=== PATIENT | female | born 1960 | race Asian ===

== ENCOUNTER 2017-05-13 08:51 | Inpatient (IN) | payer BC, OTHER ==
[2017-05-13] MEDS ORDERED: ONDANSETRON 4 MG/2 ML VIAL IVP STA (09:01)
[2017-05-13] MEDS ORDERED: SODIUM CHLORIDE 0.9% 500 ML IV STA (09:01)
[2017-05-13] MEDS ORDERED: SODIUM CHLORIDE 0.9% 1,000 ML IV STA (09:01)
[2017-05-13] MEDS ORDERED: ACETAMINOPHEN TAB 500 MG TAB PO STA (09:03)
--- NOTE | 2017-05-13 09:09 | ED ---
Fever HPI - General Source: patient, family, RN notes reviewed Mode of arrival: ambulatory Limitations: language barrier <Jay Fortune - Last Filed: 05/13/17 10:50> <Daniel Monique - Last Filed: 05/13/17 11:02> - General Chief Complaint: Fever Stated Complaint: Dizziness Time Seen by Provider: 05/13/17 08:56 - History of Present Illness Initial Comments: This a 56-year-old female presents emergency Department chief complaint of right -sided abdominal pain, right flank pain for last 2-3 days. Patient states that she's had some vomiting denies any diarrhea constipation issues. Patient denies any dysuria, hematuria, sick contacts. Patient had no prior abdominal surgeries. Patient denies any chest pain or shortness of breath. Patient denies any injury. Patient has not taken anything recently for her fever. ( Jay Fortune) - Related Data Allergies Allergy/AdvReac Type Severity Reaction Status Date / Time No Known Allergies Allergy Verified 05/13/17 10:59 Review of Systems ROS Other: All systems not noted in ROS Statement are negative. <Jay Fortune - Last Filed: 05/13/17 10:50> ROS Other: All systems not noted in ROS Statement are negative. <Daniel Monique - Last Filed: 05/13/17 11:02> ROS Statement: Those systems with pertinent positive or pertinent negative responses have been documented in the HPI. Past Medical History Past Medical History: No Reported History History of Any Multi-Drug Resistant Organisms: None Reported Past Surgical History: No Surgical Hx Reported Past Psychological History: No Psychological Hx Reported Smoking Status: Never smoker Past Alcohol Use History: None Reported Past Drug Use History: None Reported <Jay Fortune - Last Filed: 05/13/17 10:50> General Exam Limitations: language barrier General appearance: alert, in no apparent distress Head exam: Present: atraumatic, normocephalic, normal inspection Respiratory exam: Present: normal lung sounds bilaterally. Absent: respiratory distress, wheezes, rales, rhonchi, stridor Cardiovascular Exam: Present: normal rhythm, tachycardia, normal heart sounds. Absent: systolic murmur, diastolic murmur, rubs, gallop, clicks GI/Abdominal exam: Present: soft, tenderness (Right upper quadrant), normal bowel sounds. Absent: distended, guarding, rebound, rigid Back exam: Present: CVA tenderness (R). Absent: CVA tenderness (L) Skin exam: Present: warm, dry, intact, normal color. Absent: rash <Jay Fortune - Last Filed: 05/13/17 10:50> Course <Jay Fortune - Last Filed: 05/13/17 10:50> <Daniel Monique - Last Filed: 05/13/17 11:02> Vital Signs 05/13/17 08:53 Temperature 102.0 F H Pulse Rate 103 H Respiratory 20 Rate Blood Pressure 105/57 O2 Sat by Pulse 98 Oximetry - Reevaluation(s) Reevaluation #1: 05/13/17 11:02 PA supervision: I did personally evaluate this case and did discuss findings. The hospitalist was notified the patient does have evidence of pyelonephritis as well as gallbladder disease. Patient will require IV antibiotics with surgical consultation. I do agree with the assessment and plan. (Daniel Monique) Medical Decision Making - Lab Data Result diagrams: 05/13/17 09:05 05/13/17 09:05 <Jay Fortune - Last Filed: 05/13/17 10:50> - Lab Data Result diagrams: 05/13/17 09:05 05/13/17 09:05 <Daniel Monique - Last Filed: 05/13/17 11:02> - Lab Data Lab Results 05/13/17 05/13/17 05/13/17 Range/Units 09:05 09:05 09:05 WBC 9.9 (3.8-10.6) k/uL RBC 4.02 (3.80-5.40) m/uL Hgb 12.2 (11.4-16.0) gm/dL Hct 37.4 (34.0-46.0) % MCV 92.9 (80.0-100.0) fL MCH 30.3 (25.0-35.0) pg MCHC 32.6 (31.0-37.0) g/dL RDW 12.9 (11.5-15.5) % Plt Count 170 (150-450) k/uL Neutrophils % 88 % Lymphocytes % 9 % Monocytes % 2 % Eosinophils % 1 % Basophils % 0 % Neutrophils # 8.7 H (1.3-7.7) k/uL Lymphocytes # 0.9 L (1.0-4.8) k/uL Monocytes # 0.2 (0-1.0) k/uL Eosinophils # 0.1 (0-0.7) k/uL Basophils # 0.0 (0-0.2) k/uL Sodium 139 (137-145) mmol/L Potassium 3.8 (3.5-5.1) mmol/L Chloride 106 (98-107) mmol/L Carbon Dioxide 21 L (22-30) mmol/L Anion Gap 12 mmol/L BUN 8 (7-17) mg/dL Creatinine 0.66 (0.52-1.04) mg/dL Est GFR (CKD-EPI)AfAm >90 (>60 ml/min/1.73 sqM) Est GFR (CKD-EPI)NonAf >90 (>60 ml/min/1.73 sqM) Glucose 121 H (74-99) mg/dL Plasma Lactic Acid Carmine 1.1 (0.7-2.0) mmol/L Calcium 8.8 (8.4-10.2) mg/dL Total Bilirubin 0.9 (0.2-1.3) mg/dL AST 21 (14-36) U/L ALT 36 (9-52) U/L Alkaline Phosphatase 57 (38-126) U/L Total Protein 6.8 (6.3-8.2) g/dL Albumin 3.8 (3.5-5.0) g/dL Amylase 46 (30-110) U/L Lipase 43 (23-300) U/L Urine Color Urine Appearance (Clear) Urine pH (5.0-8.0) Ur Specific Snyder (1.001-1.035) Urine Protein (Negative) Urine Glucose (UA) (Negative) Urine Ketones (Negative) Urine Blood (Negative) Urine Nitrite (Negative) Urine Bilirubin (Negative) Urine Urobilinogen (<2.0) mg/dL Ur Leukocyte Esterase (Negative) Urine RBC (0-5) /hpf Urine WBC (0-5) /hpf Urine WBC Clumps (None) /hpf Amorphous Sediment (None) /hpf Urine Bacteria (None) /hpf 05/13/17 Range/Units 09:05 WBC (3.8-10.6) k/uL RBC (3.80-5.40) m/uL Hgb (11.4-16.0) gm/dL Hct (34.0-46.0) % MCV (80.0-100.0) fL MCH (25.0-35.0) pg MCHC (31.0-37.0) g/dL RDW (11.5-15.5) % Plt Count (150-450) k/uL Neutrophils % % Lymphocytes % % Monocytes % % Eosinophils % % Basophils % % Neutrophils # (1.3-7.7) k/uL Lymphocytes # (1.0-4.8) k/uL Monocytes # (0-1.0) k/uL Eosinophils # (0-0.7) k/uL Basophils # (0-0.2) k/uL Sodium (137-145) mmol/L Potassium (3.5-5.1) mmol/L Chloride (98-107) mmol/L Carbon Dioxide (22-30) mmol/L Anion Gap mmol/L BUN (7-17) mg/dL Creatinine (0.52-1.04) mg/dL Est GFR (CKD-EPI)AfAm (>60 ml/min/1.73 sqM) Est GFR (CKD-EPI)NonAf (>60 ml/min/1.73 sqM) Glucose (74-99) mg/dL Plasma Lactic Acid Carmine (0.7-2.0) mmol/L Calcium (8.4-10.2) mg/dL Total Bilirubin (0.2-1.3) mg/dL AST (14-36) U/L ALT (9-52) U/L Alkaline Phosphatase (38-126) U/L Total Protein (6.3-8.2) g/dL Albumin (3.5-5.0) g/dL Amylase (30-110) U/L Lipase (23-300) U/L Urine Color Yellow Urine Appearance Cloudy H (Clear) Urine pH 8.5 H (5.0-8.0) Ur Specific Snyder 1.015 (1.001-1.035) Urine Protein 1+ H (Negative) Urine Glucose (UA) Negative (Negative) Urine Ketones Negative (Negative) Urine Blood Small H (Negative) Urine Nitrite Positive H (Negative) Urine Bilirubin Negative (Negative) Urine Urobilinogen 2.0 (<2.0) mg/dL Ur Leukocyte Esterase Moderate H (Negative) Urine RBC 2 (0-5) /hpf Urine WBC 81 H (0-5) /hpf Urine WBC Clumps Few H (None) /hpf Amorphous Sediment Occasional H (None) /hpf Urine Bacteria Few H (None) /hpf Disposition <Jay Fortune - Last Filed: 05/13/17 10:50> <Daniel Monique - Last Filed: 05/13/17 11:02> Clinical Impression: Pyelonephritis, Cholecystitis Disposition: ADMITTED IP TO THIS HOSP Condition: Fair Referrals: None,Stated [Primary Care Provider] - 1-2 days
[2017-05-13 09:37] LABS: Basophils % (A) 0 %; Eosinophils # (A) 0.1 k/uL (0-0.7); Eosinophils % (A) 1 %; HCT 37.4 % (34.0-46.0); HGB 12.2 gm/dL (11.4-16.0); Lymphocytes # (A) 0.9 k/uL (1.0-4.8); Lymphocytes % (A) 9 %; MCH 30.3 pg (25.0-35.0); MCHC 32.6 g/dL (31.0-37.0); MCV 92.9 fL (80.0-100.0); Mean Platelet Volume 7.2; Monocytes # (A) 0.2 k/uL (0-1.0); Monocytes % (A) 2 %; Neutrophils # (A) 8.7 k/uL (1.3-7.7); Neutrophils % (A) 88 %; Platelet Count 170 k/uL (150-450); RBC 4.02 m/uL (3.80-5.40); RDW 12.9 % (11.5-15.5); WBC 9.9 k/uL (3.8-10.6)
[2017-05-13 09:40] LABS: Amorphous Sediment,Urine Occasional /hpf; Appearance,Urine Cloudy (Clear); Bacteria,Urine Few /hpf; Bilirubin,Urine Negative (Negative); Blood,Urine Small (Negative); Color,Urine Yellow; Glucose,Urine (UA) Negative (Negative); Ketones,Urine Negative (Negative); Leukocyte Esterase,Urine Moderate (Negative); Nitrite,Urine Positive (Negative); PH, Urine 8.5 (5.0-8.0); Protein,Urine 1+ (Negative); RBC,Urine 2 /hpf (0-5); Specific Gravity,Urine 1.015 (1.001-1.035); WBC,Urine 81 /hpf (0-5)
[2017-05-13 09:46] LABS: ALT 36 U/L (9-52); AST 21 U/L (14-36); Albumin 3.8 g/dL (3.5-5.0); Alkaline Phosphatase 57 U/L (38-126); Amylase 46 U/L (30-110); Anion Gap 12 mmol/L; Blood Urea Nitrogen 8 mg/dL (7-17); Calcium 8.8 mg/dL (8.4-10.2); Carbon Dioxide 21 mmol/L (22-30); Chloride 106 mmol/L (98-107); Glucose 121 mg/dL (74-99); Lipase 43 U/L (23-300); Potassium 3.8 mmol/L (3.5-5.1); Sodium 139 mmol/L (137-145); Total Bilirubin 0.9 mg/dL (0.2-1.3); Total Protein 6.8 g/dL (6.3-8.2)
--- NOTE | 2017-05-13 10:36 | US ---
EXAMINATION TYPE: US abdomen limited DATE OF EXAM: 05/13/2017 COMPARISON: NONE CLINICAL HISTORY: Pain. Fever, N&V, ABD pain EXAM MEASUREMENTS: Liver Length: 13.3 cm Gallbladder Wall: 0.2 cm CBD: 0.8 cm Right Kidney: 10.6 x 4.9 x 5.2 cm Patient with language barrier, somewhat difficult exam Pancreas: Obscured by bowel gas Liver: Small cyst right lobe= 0.9 x 0.8 x 0.9 cm, otherwise visualized portions appeared wnl Gallbladder: Lumen clear, however appeared distended Evidence for sonographic Nelson's sign: Yes CBD: Dilated Right Kidney: wnl Distended GB with dilated CBD The pancreas is poorly visualized. The liver is normal in size without biliary dilatation. There is a 9 mm cyst in the posterior segment of the right lobe of the liver. The gallbladder is distended. There is no cholelithiasis. The gallbladder wall measures 2.3 mm. The d istal common hepatic duct is prominent measuring 7.8 mm. There is a positive sonographic Nelson's sig n. The right kidney is unremarkable. IMPRESSION: DISTENDED, TENDER GALLBLADDER WITHOUT DEFINITE OBSTRUCTING CALCULUS. ERCP VERSUS MRCP MAY BE WORTHWHI LE.
[2017-05-13] MEDS ORDERED: PIPERACILLIN-TAZOBACTAM 3.375 GM in DEXTROSE/WATER 1 50ML.BAG IVPB STA (10:47)
[2017-05-13] MEDS ORDERED: NALOXONE 0.4 MG/ML 1 ML VIAL IV PRN (10:51)
[2017-05-13] MEDS ORDERED: AMPICILLIN-SULBACTAM 3 GM in SODIUM CHLORIDE 0.9% 100 ML IVPB STA (10:55)
[2017-05-13] MEDS ORDERED: HYDROcodone/APAP 5-325MG 1 EACH TAB PO PRN (10:56)
[2017-05-13] MEDS ORDERED: ONDANSETRON 4 MG/2 ML VIAL IVP PRN (10:57)
[2017-05-13] MEDS ORDERED: ACETAMINOPHEN TAB 325 MG TAB PO PRN (10:57)
[2017-05-13] MEDS: SODIUM CHLORIDE 0.9% 1,000 ML IV SCH ×2 (11:31→15:47)
[2017-05-13 15:13] VITALS: BMI 26.1
[2017-05-13] MEDS ORDERED: RX INFO: IV CONTRAST WAS GIVEN 1 EACH MISC MISCELLANE PRN (16:20)
[2017-05-13] MEDS: IOPAMIDOL-300 CONTRAST 30 ML VIAL (ORAL USE) PO PRN ×2 (17:24→18:28)
--- NOTE | 2017-05-13 17:49 | P.HPIM ---
History of Present Illness 56-year-old pleasant the [place] female who doesn't speak any came in with complaints of suprapubic Pain and dysuria has been going on for about a month started having fever couple days ago high-grade was receiving Some conventional [place] therapy. Patient denied any nausea vomiting patient is found to have inflamed gallbladder with cholecystitis and significantly abnormal uterine patient was started on Unasyn surgery was consulted. Patient was having right flank pain and right flank tenderness as well Review of Systems Except for those mentioned above all other review of systems are negative Past Medical History Past Medical History: No Reported History Additional Past Medical History / Comment(s): sometimes has trouble catching her breath, feels better with drinking water. Has had kidney infections in the past. History of Any Multi-Drug Resistant Organisms: None Reported Past Surgical History: No Surgical Hx Reported Past Anesthesia/Blood Transfusion Reactions: No Reported Reaction Past Psychological History: No Psychological Hx Reported Smoking Status: Never smoker Past Alcohol Use History: None Reported Past Drug Use History: None Reported - Past Family History Father Family Medical History: Cancer Additional Family Medical History / Comment(s): of stomach cancer. Mother Family Medical History: No Reported History Additional Family Medical History / Comment(s): mother still living, healthy Medications and Allergies Home Medications Medication Instructions Recorded Confirmed Type Alendronate Sodium 70 mg PO WEEKLY 05/13/17 05/13/17 History Allergies Allergy/AdvReac Type Severity Reaction Status Date / Time No Known Allergies Allergy Verified 05/13/17 15:27 Physical Exam Vitals: Vital Signs Temp Pulse Pulse Resp BP BP Pulse Ox 05/13/17 16:41 99.5 F 78 20 96/60 98 05/13/17 12:05 98.5 F 86 16 91/54 96 05/13/17 11:15 100.3 F H 84 18 96/53 97 05/13/17 08:53 102.0 F H 103 H 20 105/57 98 Intake and Output 05/13/17 05/13/17 05/13/17 06:59 14:59 22:59 Intake Total 30 Output Total 100 Balance 30 -100 Intake: Oral 30 Output: Emesis 100 Other: Voiding Method Toilet Weight 63.6 kg PHYSICAL EXAMINATION: GENERAL: The patient is alert and oriented x3, not in any acute distress. Well developed, well nourished. HEENT: Pupils are round and equally reacting to light. EOMI. No scleral icterus. No conjunctival pallor. Normocephalic, atraumatic. No pharyngeal erythema. No thyromegaly. CARDIOVASCULAR: S1 and S2 present. No murmurs, rubs, or gallops. PULMONARY: Chest is clear to auscultation, no wheezing or crackles. ABDOMEN: Soft, minimal suprapubic tenderness minimal right upper quadrant tenderness Nelson's sign is negative there is minimal right flank tenderness MUSCULOSKELETAL: No joint swelling or deformity. EXTREMITIES: No cyanosis, clubbing, or pedal edema. NEUROLOGICAL: Gross neurological examination did not reveal any focal deficits. SKIN: No rashes. Results CBC & Chem 7: 05/13/17 09:05 05/13/17 09:05 Labs: Abnormal Lab Results - Last 24 Hours (Table) 05/13/17 05/13/17 05/13/17 Range/Units 09:05 09:05 09:05 Neutrophils # 8.7 H (1.3-7.7) k/uL Lymphocytes # 0.9 L (1.0-4.8) k/uL Carbon Dioxide 21 L (22-30) mmol/L Glucose 121 H (74-99) mg/dL Urine Appearance Cloudy H (Clear) Urine pH 8.5 H (5.0-8.0) Urine Protein 1+ H (Negative) Urine Blood Small H (Negative) Urine Nitrite Positive H (Negative) Ur Leukocyte Esterase Moderate H (Negative) Urine WBC 81 H (0-5) /hpf Urine WBC Clumps Few H (None) /hpf Amorphous Sediment Occasional H (None) /hpf Urine Bacteria Few H (None) /hpf Thrombosis Risk Factor Assmnt - Choose All That Apply Each Factor Represents 1 point: Age 41-60 years, Obesity (BMI >25) Other congenital or acquired thrombophilia - If yes, enter type in comment: No Thrombosis Risk Factor Assessment Total Risk Factor Score: 2 Thrombosis Risk Factor Assessment Level: Low Risk Assessment and Plan Plan: -Sepsis: Probably related to either cholecystitis with contribution from urinary tract infection patient was started on Unasyn and elevated urine cultures and blood cultures. -Cholecystitis with dilated gallbladder although liver enzymes are essentially within normal limits surgery was consulted.
--- NOTE | 2017-05-13 19:42 | CT ---
EXAMINATION TYPE: CT abdomen pelvis w con DATE OF EXAM: 05/13/2017 COMPARISON: Ultrasound abdomen same date HISTORY: Generalized pain with vomiting CT DLP: 315.3 mGycm Automated exposure control for dose reduction was used. TECHNIQUE: Helical acquisition of images from the lung bases through the pelvis have been completed. CONTRAST: Performed with Oral Contrast and with IV Contrast, patient injected with 100 mL of Isovue 300. FINDINGS: LUNG BASES: Probable basilar atelectatic changes are present.. AORTA: No significant abnormality is appreciated. LIVER/GB: Cystic focus present in the right lobe of the liver shows some questionable nodular enhance ment, this may represent hemangioma rather than cyst, some subcentimeter cystic foci are scattered wi thin the right lobe.. PANCREAS: No significant abnormality is seen. SPLEEN: No significant abnormality is seen. ADRENALS: No significant abnormality is seen. KIDNEYS: Striated nephrogram is present on the right. No hydronephrosis or ureteral calcification jerome dent. REPRODUCTIVE ORGANS: No significant abnormality is seen BOWEL: The appendix shows borderline abnormal caliber at approximately 7-8 mm., Some questionable in creased density in the surrounding mesenteric fat better seen on coronal image 30 and 31 FREE AIR: No Free Air visible. ASCITES: None visible. PELVIC ADENOPATHY: None visualized. RETROPERITONEAL ADENOPATHY: No Retroperitoneal Adenopathy visible. URINARY BLADDER: Not distended and shows a thickened wall, correlate for cystitis. OSSEOUS STRUCTURES: Degenerative disc changes, facet arthropathy is noted especially in the lower will mbar spine.. IMPRESSION: FINDINGS SUGGEST PYELONEPHRITIS ON THE RIGHT, CORRELATE. Difficult to exclude appendicitis, follow-up as indicated
[2017-05-13] MEDS: AMPICILLIN-SULBACTAM 3 GM in SODIUM CHLORIDE 0.9% 100 ML IVPB SCH (20:02)
[2017-05-14] MEDS: AMPICILLIN-SULBACTAM 3 GM in SODIUM CHLORIDE 0.9% 100 ML IVPB SCH ×3 (04:11→20:07)
[2017-05-14 07:53] LABS: HCT 32.2 % (34.0-46.0); HGB 10.9 gm/dL (11.4-16.0); MCH 31.4 pg (25.0-35.0); MCV 92.5 fL (80.0-100.0); Platelet Count 159 k/uL (150-450); RBC 3.48 m/uL (3.80-5.40); RDW 12.8 % (11.5-15.5); WBC 8.8 k/uL (3.8-10.6)
[2017-05-14 08:03] LABS: ALT 29 U/L (9-52); AST 14 U/L (14-36); Alkaline Phosphatase 51 U/L (38-126); Anion Gap 12 mmol/L; Blood Urea Nitrogen 6 mg/dL (7-17); Carbon Dioxide 19 mmol/L (22-30); Chloride 114 mmol/L (98-107); Glucose 92 mg/dL (74-99); Potassium 3.7 mmol/L (3.5-5.1); Sodium 145 mmol/L (137-145); Total Bilirubin 0.4 mg/dL (0.2-1.3); Total Protein 5.7 g/dL (6.3-8.2)
[2017-05-14] MEDS: SODIUM CHLORIDE 0.9% 1,000 ML IV SCH (12:27)
--- NOTE | 2017-05-14 12:27 | P.GSCN ---
History of Present Illness Consult date: 05/14/17 Reason for Consult: Abdominal pain History of present illness: Patient admitted to the hospital with abdominal pain. This was right-sided. There was radiation to the back. This is been going on for the last several days. Some dysuria and lower abdominal pain as well. Ultrasound showed a distended gallbladder without stones. CAT scan showed evidence of pyelonephritis with a slightly thickened appendix. She has a normal white blood cell count. She had high fevers and chills on admission. Those symptoms have improved. She is hungry. Urinalysis does appear consistent with severe UTI. Review of Systems The patient denies any acute changes in vision or hearing, no dysphagia or odynophagia, no chest pain or shortness of breath, no hematuria, no headache, no runny nose, no rectal bleeding or melena, no unexplained weight loss Past Medical History Past Medical History: No Reported History Additional Past Medical History / Comment(s): sometimes has trouble catching her breath, feels better with drinking water. Has had kidney infections in the past. History of Any Multi-Drug Resistant Organisms: None Reported Past Surgical History: No Surgical Hx Reported Past Anesthesia/Blood Transfusion Reactions: No Reported Reaction Past Psychological History: No Psychological Hx Reported Smoking Status: Never smoker Past Alcohol Use History: None Reported Past Drug Use History: None Reported - Past Family History Father Family Medical History: Cancer Additional Family Medical History / Comment(s): of stomach cancer. Mother Family Medical History: No Reported History Additional Family Medical History / Comment(s): mother still living, healthy Medications and Allergies Home Medications Medication Instructions Recorded Confirmed Type Alendronate Sodium 70 mg PO WEEKLY 05/13/17 05/13/17 History Allergies Allergy/AdvReac Type Severity Reaction Status Date / Time No Known Allergies Allergy Verified 05/13/17 15:27 Surgical - Exam Vital Signs Temp Pulse Resp BP Pulse Ox 102.0 F H 103 H 20 105/57 98 05/13/17 08:53 05/13/17 08:53 05/13/17 08:53 05/13/17 08:53 05/13/17 08:53 Physical exam: General: Well-developed, well-nourished HEENT: Normocephalic, sclerae nonicteric Abdomen: Right mid abdominal tenderness with significant right CVA tenderness, nondistended Extremities: No edema Neuro: Alert and oriented Results - Labs 05/14/17 07:17 05/14/17 07:17 Abnormal Lab Results - Last 24 Hours (Table) 05/14/17 05/14/17 Range/Units 07:17 07:17 RBC 3.48 L (3.80-5.40) m/uL Hgb 10.9 L (11.4-16.0) gm/dL Hct 32.2 L (34.0-46.0) % Chloride 114 H (98-107) mmol/L Carbon Dioxide 19 L (22-30) mmol/L BUN 6 L (7-17) mg/dL Calcium 8.0 L (8.4-10.2) mg/dL Total Protein 5.7 L (6.3-8.2) g/dL Albumin 3.0 L (3.5-5.0) g/dL Microbiology - Last 24 Hours (Table) 05/13/17 09:05 Blood Culture - Preliminary Blood No Growth after 24 hours 05/13/17 09:05 Urine Culture - Preliminary Urine,Clean Catch Diabetes panel 05/14/17 Range/Units 07:17 Sodium 145 (137-145) mmol/L Potassium 3.7 (3.5-5.1) mmol/L Chloride 114 H (98-107) mmol/L Carbon Dioxide 19 L (22-30) mmol/L BUN 6 L (7-17) mg/dL Creatinine 0.58 (0.52-1.04) mg/dL Glucose 92 (74-99) mg/dL Calcium 8.0 L (8.4-10.2) mg/dL AST 14 (14-36) U/L ALT 29 (9-52) U/L Alkaline Phosphatase 51 (38-126) U/L Total Protein 5.7 L (6.3-8.2) g/dL Albumin 3.0 L (3.5-5.0) g/dL Calcium panel 05/14/17 Range/Units 07:17 Calcium 8.0 L (8.4-10.2) mg/dL Albumin 3.0 L (3.5-5.0) g/dL Pituitary panel 05/14/17 Range/Units 07:17 Sodium 145 (137-145) mmol/L Potassium 3.7 (3.5-5.1) mmol/L Chloride 114 H (98-107) mmol/L Carbon Dioxide 19 L (22-30) mmol/L BUN 6 L (7-17) mg/dL Creatinine 0.58 (0.52-1.04) mg/dL Glucose 92 (74-99) mg/dL Calcium 8.0 L (8.4-10.2) mg/dL Adrenal panel 05/14/17 Range/Units 07:17 Sodium 145 (137-145) mmol/L Potassium 3.7 (3.5-5.1) mmol/L Chloride 114 H (98-107) mmol/L Carbon Dioxide 19 L (22-30) mmol/L BUN 6 L (7-17) mg/dL Creatinine 0.58 (0.52-1.04) mg/dL Glucose 92 (74-99) mg/dL Calcium 8.0 L (8.4-10.2) mg/dL Total Bilirubin 0.4 (0.2-1.3) mg/dL AST 14 (14-36) U/L ALT 29 (9-52) U/L Alkaline Phosphatase 51 (38-126) U/L Total Protein 5.7 L (6.3-8.2) g/dL Albumin 3.0 L (3.5-5.0) g/dL Assessment and Plan (1) Pyelonephritis Narrative/Plan: Patient with symptoms history and diagnostic studies suggesting acute right- sided pyelonephritis being the source of her problems. I do not believe the patient's gallbladder or appendix are a source of issues at this time. Continue IV antibiotics for pyelonephritis. Advance diet as tolerated. Will make an appointment for the patient to follow-up with me in the outpatient setting to discuss whether additional gallbladder workup is warranted. Current Visit: Yes Status: Acute Code(s): N12 - TUBULO-INTERSTITIAL NEPHRITIS, NOT SPCF ACUTE OR CHRONIC SNOMED Code(s): 07130825
--- NOTE | 2017-05-14 12:58 | P.PN ---
Subjective 56-year-old female was admitted for sepsis secondary to UTI and pyelonephritis patient feels much better today no more fevers since the antibiotics. There was a concern about cholecystitis because of which the surgery evaluated the patient and they will follow her as an outpatient no further intervention is being anticipated during this hospitalization. We're waiting for urine cultures. Patient's supervision pain significantly improved patient feels much better Objective - Vital Signs Vital signs: Vital Signs Temp 99.1 F 05/14/17 11:43 Pulse 66 05/14/17 11:43 Resp 16 05/14/17 11:43 BP 101/62 05/14/17 11:43 Pulse Ox 98 05/14/17 11:43 Intake & Output 05/13/17 05/14/17 05/14/17 18:59 06:59 18:59 Intake Total 630 780 480 Output Total 1000 350 Balance -370 780 130 Weight 63.6 kg Intake: Oral 630 780 480 Output: Urine 400 350 Emesis 600 Other: Voiding Method Toilet Toilet Toilet # Bowel Movements 1 - Exam GENERAL: The patient is alert and oriented x3, not in any acute distress. Well developed, well nourished. HEENT: Pupils are round and equally reacting to light. EOMI. No scleral icterus. No conjunctival pallor. Normocephalic, atraumatic. No pharyngeal erythema. No thyromegaly. CARDIOVASCULAR: S1 and S2 present. No murmurs, rubs, or gallops. PULMONARY: Chest is clear to auscultation, no wheezing or crackles. ABDOMEN: Soft, minimal suprapubic tenderness significantly improved MUSCULOSKELETAL: No joint swelling or deformity. EXTREMITIES: No cyanosis, clubbing, or pedal edema. NEUROLOGICAL: Gross neurological examination did not reveal any focal deficits. SKIN: No rashes. - Labs CBC & Chem 7: 05/14/17 07:17 05/14/17 07:17 Labs: Abnormal Lab Results - Last 24 Hours (Table) 05/14/17 05/14/17 Range/Units 07:17 07:17 RBC 3.48 L (3.80-5.40) m/uL Hgb 10.9 L (11.4-16.0) gm/dL Hct 32.2 L (34.0-46.0) % Chloride 114 H (98-107) mmol/L Carbon Dioxide 19 L (22-30) mmol/L BUN 6 L (7-17) mg/dL Calcium 8.0 L (8.4-10.2) mg/dL Total Protein 5.7 L (6.3-8.2) g/dL Albumin 3.0 L (3.5-5.0) g/dL Microbiology - Last 24 Hours (Table) 05/13/17 09:05 Blood Culture - Preliminary Blood No Growth after 24 hours 05/13/17 09:05 Urine Culture - Preliminary Urine,Clean Catch Assessment and Plan Plan: -Sepsis: Probably due to urinary tract infection and pyelonephritis awaiting and cultures continue with above-mentioned antibiotics. - -Low possibility Cholecystitis with dilated gallbladder although liver enzymes are essentially within normal limits surgery was consulted. Her enzymes essentially stable
[2017-05-15] MEDS: AMPICILLIN-SULBACTAM 3 GM in SODIUM CHLORIDE 0.9% 100 ML IVPB SCH ×2 (03:55→12:51)
[2017-05-15] MEDS: SODIUM CHLORIDE 0.9% 1,000 ML IV SCH ×2 (03:55→04:00)
--- NOTE | 2017-05-15 12:46 | P.PN ---
<Ely Saenz - Last Filed: 05/15/17 12:41> Subjective Progress Note Date: 05/15/17 56-year-old Tajik speaking female seen at bedside. Daughter at the bedside who is able to interpret Ukrainian language through the video tape duplicator patient reportedly is not experiencing any abdominal pain. Continues to have mild right -sided discomfort which has improved reportedly is not experiencing any burning on urination frequency. No nausea no vomiting. No labs this morning remained afebrile temp 98.7. Patient's initial presentation to the emergency room right side abdominal pain radiating to the back ongoing for several days. Ultrasound the gallbladder showed no stones. Computed tomography scan showed evidence of pyelonephritis with a slightly thickened appendix. Normal white count. Urinalysis consistent with UTI Objective - Vital Signs Vital signs: Vital Signs Temp 98.7 F 05/15/17 08:28 Pulse 73 05/15/17 08:28 Resp 17 05/15/17 08:28 BP 113/75 05/15/17 08:28 Pulse Ox 98 05/15/17 08:28 Intake & Output 05/14/17 05/15/17 05/15/17 18:59 06:59 18:59 Intake Total 840 1000 Output Total 550 Balance 290 1000 Weight 63.6 kg Intake: Oral 840 1000 Output: Urine 550 Other: Voiding Method Toilet Toilet # Voids 1 - Exam Physical exam Pleasant 56-year-old female sitting up on the edge of the bed doing exercises appears in no acute distress Lungs adequate air movement bilaterally on room air no cough Heart S1-S2 audible regular no murmur Abdomen soft nondistended no facial grimacing with palpitation to the abdominal wall reports no nausea vomiting reportedly urinating no difficulty bowel tones present tolerating diet Extremities no edema - Labs CBC & Chem 7: 05/14/17 07:17 05/14/17 07:17 Labs: Microbiology - Last 24 Hours (Table) 05/13/17 09:05 Blood Culture - Preliminary Blood No Growth after 48 hours 05/13/17 09:05 Urine Culture - Preliminary Urine,Clean Catch Gram Neg Bacilli <Obinna Orozco - Last Filed: 05/15/17 16:44> Objective - Vital Signs Vital signs: Vital Signs Temp 98.9 F 05/15/17 15:40 Pulse 79 05/15/17 15:40 Resp 16 05/15/17 15:40 BP 105/67 05/15/17 15:40 Pulse Ox 99 05/15/17 15:40 Intake & Output 05/14/17 05/15/17 05/15/17 18:59 06:59 18:59 Intake Total 840 1000 Output Total 550 Balance 290 1000 Weight 63.6 kg Intake: Oral 840 1000 Output: Urine 550 Other: Voiding Method Toilet Toilet # Voids 1 2 - Labs CBC & Chem 7: 05/14/17 07:17 05/14/17 07:17 Labs: Microbiology - Last 24 Hours (Table) 05/13/17 09:05 Blood Culture - Preliminary Blood No Growth after 48 hours 05/13/17 09:05 Urine Culture - Preliminary Urine,Clean Catch Gram Neg Bacilli Assessment and Plan (1) Pyelonephritis Narrative/Plan: As above. Patient doing better today. Less pain. Urine culture noted. Continue diet as tolerated. We'll sign off. Advise outpatient follow-up to discuss possible chronic cholecystitis. Please contact if needed. Current Visit: Yes Status: Acute Code(s): N12 - TUBULO-INTERSTITIAL NEPHRITIS, NOT SPCF ACUTE OR CHRONIC SNOMED Code(s): 02555778
--- NOTE | 2017-05-15 13:11 | P.PN ---
Subjective 56-year-old female was admitted for sepsis secondary to UTI and pyelonephritis patient feels much better today no more fevers since the antibiotics. There was a concern about cholecystitis because of which the surgery evaluated the patient and they will follow her as an outpatient no further intervention is being anticipated during this hospitalization. We're waiting for urine cultures. Patient's supervision pain significantly improved patient feels much better 05/15/2017 Patient is doing much better no overnight events patient's urine cultures are showing greater than 100,000 gram-negative bacilli finalization of the culture is pending patient hopefully can be discharged tomorrow once we get the culture sensitivities. Objective - Vital Signs Vital signs: Vital Signs Temp 98.7 F 05/15/17 08:28 Pulse 73 05/15/17 08:28 Resp 17 05/15/17 08:28 BP 113/75 05/15/17 08:28 Pulse Ox 98 05/15/17 08:28 Intake & Output 05/14/17 05/15/17 05/15/17 18:59 06:59 18:59 Intake Total 840 1000 Output Total 550 Balance 290 1000 Weight 63.6 kg Intake: Oral 840 1000 Output: Urine 550 Other: Voiding Method Toilet Toilet # Voids 1 - Exam GENERAL: The patient is alert and oriented x3, not in any acute distress. Well developed, well nourished. HEENT: Pupils are round and equally reacting to light. EOMI. No scleral icterus. No conjunctival pallor. Normocephalic, atraumatic. No pharyngeal erythema. No thyromegaly. CARDIOVASCULAR: S1 and S2 present. No murmurs, rubs, or gallops. PULMONARY: Chest is clear to auscultation, no wheezing or crackles. ABDOMEN: Soft, minimal suprapubic tenderness significantly improved MUSCULOSKELETAL: No joint swelling or deformity. EXTREMITIES: No cyanosis, clubbing, or pedal edema. NEUROLOGICAL: Gross neurological examination did not reveal any focal deficits. SKIN: No rashes. - Labs CBC & Chem 7: 05/14/17 07:17 05/14/17 07:17 Labs: Microbiology - Last 24 Hours (Table) 05/13/17 09:05 Blood Culture - Preliminary Blood No Growth after 48 hours 05/13/17 09:05 Urine Culture - Preliminary Urine,Clean Catch Gram Neg Bacilli Assessment and Plan Plan: -Sepsis: Probably due to urinary tract infection and pyelonephritis awaiting and cultures continue with above-mentioned antibiotics. - -Low possibility Cholecystitis with dilated gallbladder although liver enzymes are essentially within normal limits surgery was consulted. Her enzymes essentially stable
[2017-05-15] MEDS ORDERED: LEVOFLOXACIN 500 MG TAB PO SCH (19:00)
[2017-05-16 01:29] VITALS: RESP 16
[2017-05-16 08:37] VITALS: BP 106/70; PULSE 67; TEMP 98.3
--- NOTE | 2017-05-16 16:21 | P.DS ---
Providers Date of admission: 05/13/17 11:01 Expected date of discharge: 05/16/17 Attending physician: Lucía Sheth Consults: 05/13/17 10:56 Consult Physician Stat Consulting Provider: Obinna Orozco Reason/Comments: Cholecystitis Do you want consulting provider notified?: Yes Primary care physician: Stated None Bazo Hospital Course: Final Diagnoses: 1. Sepsis secondary to acute UTI with E. coli and pyelonephritis, cultures positive for E. coli 2.-Low possibility Cholecystitis with dilated gallbladder although liver enzymes are essentially within normal limits surgery was consulted. Her enzymes essentially stable Hospital course:56-year-old female was admitted for sepsis secondary to UTI and pyelonephritis. Maintained on IV antibiotics. There was a concern about cholecystitis because of which the surgery evaluated the patient and they will follow her as an outpatient. Urine cultures positive for E. coli. Significant clinical improvement. Patient is being discharged home in a stable condition with guarded prognosis. Family member at bedside, as interpretor. Physical Exam GENERAL: The patient is alert and oriented x3, not in any acute distress. Well developed, well nourished. HEENT: Pupils are round and equally reacting to light. EOMI. No scleral icterus. No conjunctival pallor. Normocephalic, atraumatic. No pharyngeal erythema. No thyromegaly. CARDIOVASCULAR: S1 and S2 present. No murmurs, rubs, or gallops. PULMONARY: Chest is clear to auscultation, no wheezing or crackles. ABDOMEN: Soft, minimal suprapubic tenderness significantly improved MUSCULOSKELETAL: No joint swelling or deformity. EXTREMITIES: No cyanosis, clubbing, or pedal edema. NEUROLOGICAL: Gross neurological examination did not reveal any focal deficits. SKIN: No rashes. Microbiology 05/13/17 09:05 Blood Blood Culture - Preliminary No Growth after 72 hours 05/13/17 09:05 Urine,Clean Catch Urine Culture - Final Escherichia coli The impression and plan of care has been dictated as directed. : I performed a history and examination of this patient, discussed the same with the dictator. I agree with the dictator's note ,documented as a scribe. Any additional findings or plans will be noted. Time taken: 35 minutes Patient Condition at Discharge: Stable Plan - Discharge Summary New Discharge Prescriptions: New Levofloxacin [Levaquin] 500 mg PO Q24H #5 tab Continue Alendronate Sodium 70 mg PO WEEKLY Discharge Medication List Alendronate Sodium 70 mg PO WEEKLY 05/13/17 [History] Levofloxacin [Levaquin] 500 mg PO Q24H #5 tab 05/16/17 [Rx] Follow up Appointment(s)/Referral(s): Obinna Orozco MD [Medical Doctor] - 06/07/17 3:30 pm Sera Jurado MD [REFERRING] - 05/19/17 10:20 am Ambulatory/Diagnostic Orders: Complete Blood Count w/diff [LAB.AMB] Time Frame: 3 Days, Location: Determined By Patient Patient Instructions/Handouts: Urinary Tract Infection in Women (DC) Activity/Diet/Wound Care/Special Instructions: Eat yogurt three times a day while on antibiotics. Drink plenty of water. Take your antibiotic once a day as directed. If any fevers, or if you feel worse contact your doctor. Discharge Disposition: HOME SELF-CARE
== END 2017-05-16 10:40 | disposition home or self-care (01) | DRG 872 ==
LOC: EC 08:51 → 6PED 11:01
PROVIDERS: ADMIT Internal Medicine; ATTEND Internal Medicine
DX: A41.51 Sepsis due to Escherichia coli [E. coli] (principal); K81.9 Cholecystitis, unspecified; K82.8 Other specified diseases of gallbladder; N12 Tubulo-interstitial nephritis, not specified as acute or chronic; Z79.899 Other long term (current) drug therapy; Z80.0 Family history of malignant neoplasm of digestive organs
CPT/HCPCS: 36415; 74177; 76705; 80053; 81001; 82150; 83605; 83690; 85025; 85027; 87040; 87077; 87086; 87186; 96361; 96374; 99284

== ENCOUNTER → 2017-05-19 | Outpatient (CLI) | payer OTHER ==
[2017-05-19 10:01] LABS: Basophils % (A) 1 %; Eosinophils # (A) 0.1 k/uL (0-0.7); Eosinophils % (A) 1 %; HGB 13.3 gm/dL (11.4-16.0); Lymphocytes # (A) 2.8 k/uL (1.0-4.8); Lymphocytes % (A) 39 %; MCH 31.2 pg (25.0-35.0); MCHC 33.2 g/dL (31.0-37.0); MCV 93.8 fL (80.0-100.0); Mean Platelet Volume 6.5; Monocytes # (A) 0.4 k/uL (0-1.0); Monocytes % (A) 6 %; Neutrophils # (A) 3.5 k/uL (1.3-7.7); Neutrophils % (A) 49 %; RBC 4.26 m/uL (3.80-5.40); RDW 12.9 % (11.5-15.5); WBC 7.1 k/uL (3.8-10.6)
[2017-05-19 10:12] LABS: Platelet Count 387 k/uL (150-450)
[2017-05-19 10:44] LABS: Anion Gap 15 mmol/L; Blood Urea Nitrogen 13 mg/dL (7-17); Calcium 10.2 mg/dL (8.4-10.2); Carbon Dioxide 28 mmol/L (22-30); Chloride 103 mmol/L (98-107); Glucose 90 mg/dL (74-99); Potassium 4.8 mmol/L (3.5-5.1); Sodium 146 mmol/L (137-145)
== END | disposition home or self-care (01) ==
LOC: LABWHC1 09:03
PROVIDERS: ATTEND Nurse Practitioner
DX: N39.0 Urinary tract infection, site not specified (principal)
CPT/HCPCS: 36415; 80048; 85025

== ENCOUNTER → 2017-06-16 | Outpatient (CLI) | payer OTHER ==
--- NOTE | 2017-06-16 14:52 | NM ---
EXAMINATION TYPE: NM hepatobiliary w CCK DATE OF EXAM: 06/16/2017 COMPARISON: CT and ultrasound May 13, 2017 HISTORY: Epigastric and abdominal pain with diminished appetite heartburn and reflux-like symptoms al l per patient TECHNIQUE: After the intravenous administration of 4.7 mCi Tc 99m Mebrofenin hepatobiliary scintigrap hy is performed. Immediate images post injection. FINDINGS: There is satisfactory initial accumulation of tracer by the liver. The gallbladder is visualized wit hin 30 minutes. The small bowel activity is noted within 20 minutes. At one hour CCK was administer ed, patient was injected with 1.3 mcg of Kinevac, and gallbladder ejection fraction is calculated at 90 %, not deviated from the normal range. Therefore there is no scintigraphic evidence of cystic or common bile duct obstruction to suggest acute cholecystitis . IMPRESSION: Ejection fraction is 90%, not deviated from the normal range. Some consider this abnormal or a hyperkinetic response however.
[2017-06-16 16:32] LABS: Appearance,Urine Clear (Clear); Bacteria,Urine Rare /hpf; Bilirubin,Urine Negative (Negative); Blood,Urine Small (Negative); Color,Urine Yellow; Glucose,Urine (UA) Negative (Negative); Hyaline Casts,Urine 1 /lpf (0-2); Ketones,Urine Negative (Negative); Leukocyte Esterase,Urine Negative (Negative); Mucus,Urine Few /hpf; Nitrite,Urine Negative (Negative); Protein,Urine Negative (Negative); RBC,Urine 7 /hpf (0-5); Specific Gravity,Urine 1.015 (1.001-1.035); Squamous Epithelial Cell,Urine <1 /hpf (0-4); Urobilinogen,Urine <2.0 mg/dL (<2.0); WBC,Urine 1 /hpf (0-5)
== END | disposition home or self-care (01) ==
LOC: RADNMMAIN 12:42
PROVIDERS: ATTEND Surgery
DX: R10.11 Right upper quadrant pain (principal); N39.0 Urinary tract infection, site not specified
CPT/HCPCS: 81001; 78227; A9537; J2805

== ENCOUNTER 2021-03-18 22:48 | Emergency (ER) | payer OTHER ==
[2021-03-18 23:55] LABS: Appearance,Urine Clear (Clear); Bilirubin,Urine Negative (Negative); Blood,Urine Trace (Negative); Color,Urine Light Yellow; Glucose,Urine (UA) Negative (Negative); Ketones,Urine 1+ (Negative); Leukocyte Esterase,Urine Trace (Negative); Mucus,Urine Rare /hpf; Nitrite,Urine Negative (Negative); PH, Urine 5.5 (5.0-8.0); Protein,Urine Negative (Negative); RBC,Urine 2 /hpf (0-5); Specific Gravity,Urine 1.007 (1.001-1.035); Squamous Epithelial Cell,Urine <1 /hpf (0-4); Urobilinogen,Urine <2.0 mg/dL (<2.0); WBC,Urine 3 /hpf (0-5)
[2021-03-18] MEDS ORDERED: SODIUM CHLORIDE 0.9% 500 ML 500 ML IV STA (23:56)
[2021-03-19 00:31] LABS: Basophils % (A) 0 %; Eosinophils % (A) 0 %; HCT 39.9 % (34.0-46.0); HGB 12.7 gm/dL (11.4-16.0); Lymphocytes # (A) 2.1 k/uL (1.0-4.8); Lymphocytes % (A) 29 %; MCHC 31.7 g/dL (31.0-37.0); MCV 94.6 fL (80.0-100.0); Mean Platelet Volume 6.8; Monocytes # (A) 0.5 k/uL (0-1.0); Monocytes % (A) 7 %; Neutrophils # (A) 4.4 k/uL (1.3-7.7); Neutrophils % (A) 61 %; Platelet Count 351 k/uL (150-450); RBC 4.22 m/uL (3.80-5.40); RDW 12.4 % (11.5-15.5); WBC 7.1 k/uL (3.8-10.6)
[2021-03-19 00:53] LABS: ALT 20 U/L (4-34); AST 33 U/L (14-36); African American GFR (CKD) >90 (>60 ml/min/1.73 sqM); Albumin 3.5 g/dL (3.5-5.0); Alkaline Phosphatase 42 U/L (38-126); Amylase 53 U/L (30-110); Anion Gap 9 mmol/L; Blood Urea Nitrogen 8 mg/dL (7-17); Calcium 8.9 mg/dL (8.4-10.2); Carbon Dioxide 21 mmol/L (22-30); Chloride 106 mmol/L (98-107); Glucose 94 mg/dL (74-99); Lipase 54 U/L (23-300); Non-African American GFR(CKD) >90 (>60 ml/min/1.73 sqM); Potassium 4.3 mmol/L (3.5-5.1); Sodium 136 mmol/L (137-145); Total Bilirubin 0.7 mg/dL (0.2-1.3); Total Protein 6.3 g/dL (6.3-8.2)
--- NOTE | 2021-03-19 00:53 | CT ---
EXAMINATION TYPE: CT abdomen pelvis wo con DATE OF EXAM: 03/19/2021 COMPARISON: 05/13/2017 HISTORY: abdominal pain and bloating CT DLP: 411.5 mGycm Automated exposure control for dose reduction was used. Images obtained from the diaphragm to the floor the pelvis without contrast. There are bilateral pleural effusions. Heart size is normal. There is some mild atelectasis at the will ng bases. There is moderate amount of abdominal ascites fluid. Liver has a length of 15 cm. There is 2 cm hypod ensity that is probably a cyst in the superior right lobe of the liver. Bile ducts are nondilated. Ga llbladder appears normal. Spleen is intact. There is no evidence of pancreatic mass. The stomach is i ntact. There is no adrenal mass. Kidneys of normal size. There is no hydronephrosis. Ureters are not dilated . Bladder distends smoothly. There is no inguinal hernia. There is no evidence of a pelvic mass. There is no evidence of free air. There is no sign of a bowel obstruction. Lumbar vertebrae have normal alignment. There is no compression fracture. Bony pelvis is intact. IMPRESSION: There is large amount of abdominal ascites fluid. Bilateral pleural effusions and basilar atelectasis .
--- NOTE | 2021-03-19 02:24 | ED ---
Abdominal Pain HPI - General Chief Complaint: Abdominal Pain Stated Complaint: Abdominal Pain, Bloating Time Seen by Provider: 03/18/21 23:19 Source: patient Mode of arrival: ambulatory Limitations: language barrier - History of Present Illness Initial Comments: This patient is a 60-year-old woman visiting family here, who resides in [place]. She has been having weeks of abdominal pain which may be worsened upper portion. The patient's not able to characterize well. She has not noted worsening or relieving factors. Patient also describes having increasing distention of the abdomen going back for weeks as well. No change in urination or bowel movements. No vomiting. No fever or chills noted. No chest pain or dyspnea MD Complaint: abdominal pain -: week(s) Location: diffuse, LUQ, RUQ Radiation: none Migration to: no migration Severity: moderate Quality: dull Consistency: constant Improves With: nothing Worsens With: nothing Associated Symptoms: other (Distention) - Related Data Home Medications Medication Instructions Recorded Confirmed Alendronate Sodium 70 mg PO WEEKLY 05/13/17 05/13/17 Previous Rx's Medication Instructions Recorded Levofloxacin [Levaquin] 500 mg PO Q24H #5 tab 05/16/17 Allergies Allergy/AdvReac Type Severity Reaction Status Date / Time No Known Allergies Allergy Verified 03/18/21 22:59 Review of Systems ROS Statement: Those systems with pertinent positive or pertinent negative responses have been documented in the HPI. ROS Other: All systems not noted in ROS Statement are negative. Constitutional: Denies: fever, chills Respiratory: Denies: cough, dyspnea Cardiovascular: Denies: chest pain, palpitations, edema Gastrointestinal: Reports: abdominal pain. Denies: nausea, vomiting, diarrhea, constipation, melena, hematochezia Genitourinary: Denies: dysuria, hematuria Musculoskeletal: Denies: back pain Skin: Denies: rash Neurological: Denies: headache, weakness, numbness Past Medical History Past Medical History: No Reported History Additional Past Medical History / Comment(s): sometimes has trouble catching her breath, feels better with drinking water. Has had kidney infections in the past., covid 21 History of Any Multi-Drug Resistant Organisms: None Reported Past Surgical History: No Surgical Hx Reported Past Anesthesia/Blood Transfusion Reactions: No Reported Reaction Past Psychological History: No Psychological Hx Reported Smoking Status: Never smoker Past Alcohol Use History: None Reported Past Drug Use History: None Reported - Past Family History Father Family Medical History: Cancer Additional Family Medical History / Comment(s): of stomach cancer. Mother Family Medical History: No Reported History Additional Family Medical History / Comment(s): mother still living, healthy General Exam Limitations: language barrier General appearance: alert, in no apparent distress Head exam: Present: atraumatic, normocephalic Eye exam: Present: normal appearance. Absent: scleral icterus, conjunctival injection ENT exam: Present: normal oropharynx Neck exam: Present: normal inspection Respiratory exam: Present: normal lung sounds bilaterally. Absent: respiratory distress, wheezes, rales, rhonchi, stridor Cardiovascular Exam: Present: regular rate, normal rhythm, normal heart sounds. Absent: systolic murmur, diastolic murmur, rubs, gallop GI/Abdominal exam: Present: soft. Absent: distended, tenderness, guarding, rebound, rigid, mass, pulsatile mass, hernia Extremities exam: Present: normal inspection, normal capillary refill. Absent: pedal edema, calf tenderness Back exam: Present: normal inspection. Absent: CVA tenderness (R), CVA tenderness (L) Neurological exam: Present: alert Skin exam: Present: warm, dry, intact, normal color. Absent: rash Course Vital Signs 03/18/21 03/19/21 03/19/21 22:56 01:15 03:30 Temperature 98.3 F 98.1 F Pulse Rate 105 H 80 99 Respiratory 20 20 19 Rate Blood Pressure 138/82 112/86 127/83 O2 Sat by Pulse 97 95 94 L Oximetry Medical Decision Making - Medical Decision Making 's patient is a 60-year-old woman with some weeks of abdominal pain and distention. The patient's abdominal workup may reveal some mild ascites. No surgical type tenderness. Workup does show some suspected ascites without obvious etiology. The patient's family request to see if she could be admitted but not finding admission criteria. Patient does require further follow-up probably to have diagnostic paracentesis. I covered all this with patient's fam diogo and patient. Discussed appropriate further care and follow-up instructions. As well as return parameters. - Lab Data Result diagrams: 03/19/21 00:09 03/19/21 00:09 Lab Results 03/18/21 03/19/21 03/19/21 Range/Units 23:32 00:09 00:09 WBC 7.1 (3.8-10.6) k/uL RBC 4.22 (3.80-5.40) m/uL Hgb 12.7 (11.4-16.0) gm/dL Hct 39.9 (34.0-46.0) % MCV 94.6 (80.0-100.0) fL MCH 30.0 (25.0-35.0) pg MCHC 31.7 (31.0-37.0) g/dL RDW 12.4 (11.5-15.5) % Plt Count 351 (150-450) k/uL MPV 6.8 Neutrophils % 61 % Lymphocytes % 29 % Monocytes % 7 % Eosinophils % 0 % Basophils % 0 % Neutrophils # 4.4 (1.3-7.7) k/uL Lymphocytes # 2.1 (1.0-4.8) k/uL Monocytes # 0.5 (0-1.0) k/uL Eosinophils # 0.0 (0-0.7) k/uL Basophils # 0.0 (0-0.2) k/uL Sodium 136 L (137-145) mmol/L Potassium 4.3 (3.5-5.1) mmol/L Chloride 106 (98-107) mmol/L Carbon Dioxide 21 L (22-30) mmol/L Anion Gap 9 mmol/L BUN 8 (7-17) mg/dL Creatinine 0.68 (0.52-1.04) mg/dL Est GFR (CKD-EPI)AfAm >90 (>60 ml/min/1.73 sqM) Est GFR (CKD-EPI)NonAf >90 (>60 ml/min/1.73 sqM) Glucose 94 (74-99) mg/dL Plasma Lactic Acid Carmine (0.7-2.0) mmol/L Calcium 8.9 (8.4-10.2) mg/dL Total Bilirubin 0.7 (0.2-1.3) mg/dL AST 33 (14-36) U/L ALT 20 (4-34) U/L Alkaline Phosphatase 42 (38-126) U/L Troponin I (0.000-0.034) ng/mL C-Reactive Protein (0.00-0.80) mg/dL Total Protein 6.3 (6.3-8.2) g/dL Albumin 3.5 (3.5-5.0) g/dL Amylase 53 (30-110) U/L Lipase 54 (23-300) U/L Urine Color Light Yellow Urine Appearance Clear (Clear) Urine pH 5.5 (5.0-8.0) Ur Specific [place] 1.007 (1.001-1.035) Urine Protein Negative (Negative) Urine Glucose (UA) Negative (Negative) Urine Ketones 1+ H (Negative) Urine Blood Trace H (Negative) Urine Nitrite Negative (Negative) Urine Bilirubin Negative (Negative) Urine Urobilinogen <2.0 (<2.0) mg/dL Ur Leukocyte Esterase Trace H (Negative) Urine RBC 2 (0-5) /hpf Urine WBC 3 (0-5) /hpf Ur Squamous Epith Cells <1 (0-4) /hpf Urine Mucus Rare H (None) /hpf 03/19/21 03/19/21 03/19/21 Range/Units 00:09 00:09 00:43 WBC (3.8-10.6) k/uL RBC (3.80-5.40) m/uL Hgb (11.4-16.0) gm/dL Hct (34.0-46.0) % MCV (80.0-100.0) fL MCH (25.0-35.0) pg MCHC (31.0-37.0) g/dL RDW (11.5-15.5) % Plt Count (150-450) k/uL MPV Neutrophils % % Lymphocytes % % Monocytes % % Eosinophils % % Basophils % % Neutrophils # (1.3-7.7) k/uL Lymphocytes # (1.0-4.8) k/uL Monocytes # (0-1.0) k/uL Eosinophils # (0-0.7) k/uL Basophils # (0-0.2) k/uL Sodium (137-145) mmol/L Potassium (3.5-5.1) mmol/L Chloride (98-107) mmol/L Carbon Dioxide (22-30) mmol/L Anion Gap mmol/L BUN (7-17) mg/dL Creatinine (0.52-1.04) mg/dL Est GFR (CKD-EPI)AfAm (>60 ml/min/1.73 sqM) Est GFR (CKD-EPI)NonAf (>60 ml/min/1.73 sqM) Glucose (74-99) mg/dL Plasma Lactic Acid Carmine 0.9 (0.7-2.0) mmol/L Calcium (8.4-10.2) mg/dL Total Bilirubin (0.2-1.3) mg/dL AST (14-36) U/L ALT (4-34) U/L Alkaline Phosphatase (38-126) U/L Troponin I <0.012 (0.000-0.034) ng/mL C-Reactive Protein 3.50 H (0.00-0.80) mg/dL Total Protein (6.3-8.2) g/dL Albumin (3.5-5.0) g/dL Amylase (30-110) U/L Lipase (23-300) U/L Urine Color Urine Appearance (Clear) Urine pH (5.0-8.0) Ur Specific [place] (1.001-1.035) Urine Protein (Negative) Urine Glucose (UA) (Negative) Urine Ketones (Negative) Urine Blood (Negative) Urine Nitrite (Negative) Urine Bilirubin (Negative) Urine Urobilinogen (<2.0) mg/dL Ur Leukocyte Esterase (Negative) Urine RBC (0-5) /hpf Urine WBC (0-5) /hpf Ur Squamous Epith Cells (0-4) /hpf Urine Mucus (None) /hpf Disposition Clinical Impression: Abdominal pain, Ascites Disposition: HOME SELF-CARE Condition: Good Instructions (If sedation given, give patient instructions): Ascites (ED), Abdominal Pain (ED) Additional Instructions: We discussed, follow up to have the diagnostic paracentesis performed. Is patient prescribed a controlled substance at d/c from ED?: No Referrals: Roula Herron MD [STAFF PHYSICIAN] - 1-2 days
[2021-03-19 03:40] VITALS: BP 127/83; PULSE 99; RESP 19; TEMP 98.1
== END 2021-03-19 03:30 | disposition home or self-care (01) ==
LOC: EC 22:48
DX: R18.8 Other ascites (principal)
CPT/HCPCS: 36415; 74176; 80053; 81001; 82150; 83605; 83690; 84484; 85025; 86140; 96360; 99284